=== PATIENT | male | born 1995 | race Caucasian/White ===

== ENCOUNTER 2017-08-29 18:41 | Emergency (ER) | payer OTHER ==
[~2017-08-29] VITALS: Ht 175.3 cm; Wt 108.9 kg
[~2017-08-29 18:41] MED LIST: CRUTCH2 USE; DIAZ1KIT4 PR; HYDACE5 PO; OXCA150; PHENO100; PHENO30; PHENO60; PHENOBARBITAL
[2017-08-29] MEDS ORDERED: OXCA300 (19:12)
[2017-08-29 20:19] LABS: BASOPHILS ABSOLUTE AUTO 0.02 K/mm3 (0.00-0.23); BASOPHILS PERCENT AUTO 0 % (0-2); EOSINOPHILS ABSOLUTE AUTO 0.05 K/mm3 (0.00-0.68); EOSINOPHILS PERCENT AUTO 1 % (0-6); Hematocrit 44.8 % (37.0-53.0); Hemoglobin 15.2 g/dL (13.5-17.5); IMMATURE GRAN ABSOLUTE AUTO 0.01 K/mm3 (0.00-0.10); IMMATURE GRAN PERCENT AUTO 0 % (0-1); LYMPHOCYTES ABSOLUTE AUTO 2.07 K/mm3 (0.84-5.20); LYMPHOCYTES PERCENT AUTO 43 % (21-46); MONOCYTES ABSOLUTE AUTO 0.27 K/mm3 (0.16-1.47); MONOCYTES PERCENT AUTO 6 % (4-13); Mean Corpuscular HGB Conc 33.9 g/dL (31.5-36.5); Mean Corpuscular Volume 94 fL (80-100); Mean Platelet Volume 9.7 fL (9.1-12.4); NEUTROPHILS ABSOLUTE AUTO 2.37 K/mm3 (1.96-9.15); NEUTROPHILS PERCENT AUTO 50 % (41-73); Platelet Count 248 K/mm3 (150-400); RDW Coefficient Variation 11.8 % (11.7-14.2); RDW Standard Deviation 40.9 fL (35.1-46.3); Red Blood Cell Count 4.75 M/mm3 (4.30-5.90); White Blood Cell Count 4.79 K/mm3 (4.00-11.30)
[2017-08-29 20:40] LABS: Alanine Aminotransfer (ALT/SGP 43 U/L (12-78); Albumin, Blood 4.5 g/dL (3.4-5.0); Alk Phos 151 U/L (50-136); Anion Gap 8 mmol/L (6-16); Aspartate Aminotrans (AST/SGOT 50 U/L (12-37); Bilirubin, Total 0.2 mg/dL (0.1-1.0); Blood Urea Nitrogen 9 mg/dL (8-24); Bun/Creatinine Ratio 11.4 (12.0-20.0); CO2, Blood 28 mmol/L (21-32); Calcium, Blood 8.2 mg/dL (8.5-10.1); Chloride, Blood 107 mmol/L (98-108); Creatinine, Blood 0.79 mg/dL (0.60-1.20); Globulin, Blood 4.3 g/dL (2.2-4.0); Glomerular Filtration Rate >60 (60-); Glucose, Blood 82 mg/dL (70-99); Magnesium, Blood 2.3 mg/dL (1.6-2.4); Potassium, Blood 4.1 mmol/L (3.5-5.5); Sodium, Blood 143 mmol/L (136-145); Total Protein, Blood 8.8 g/dL (6.4-8.2)
== END 2017-08-29 20:59 | disposition home or self-care (01) ==
LOC: ER 18:41
PROVIDERS: Emergency Medicine
DX: G40.909 Epilepsy, unspecified, not intractable, without status epilepticus (principal); Z79.899 Other long term (current) drug therapy
CPT/HCPCS: 80053; 80184; 83605; 83735; 85025; 99284; J7030

== ENCOUNTER 2018-06-28 10:59 | Emergency (ER) | payer OTHER ==
[~2018-06-28] VITALS: Ht 175.3 cm; Wt 113.4 kg
[~2018-06-28 10:59] MED LIST changes: +OXCA300; +OXCA300 PO; +PHENO100 PO
[2018-06-28] MEDS ORDERED: METCAR500 PO (12:14)
[2018-06-28] MEDS ORDERED: NAPR550 PO (12:14)
== END 2018-06-28 12:19 | disposition home or self-care (01) ==
LOC: ER 10:59
DX: S20.212A Contusion of left front wall of thorax, initial encounter (principal); W22.8XXA Striking against or struck by other objects, initial encounter; Z79.899 Other long term (current) drug therapy; G40.909 Epilepsy, unspecified, not intractable, without status epilepticus; F17.220 Nicotine dependence, chewing tobacco, uncomplicated
CPT/HCPCS: 71101; 99284-25

== ENCOUNTER 2018-09-07 19:58 | Emergency (ER) | payer OTHER ==
[~2018-09-07] VITALS: Ht 175.3 cm; Wt 113.4 kg
[~2018-09-07 19:58] MED LIST changes: +METCAR500 PO; +NAPR550 PO; -PHENO100 PO
[2018-09-07 20:16] LABS: BASOPHILS ABSOLUTE AUTO 0.03 K/mm3 (0.00-0.23); BASOPHILS PERCENT AUTO 0 % (0-2); EOSINOPHILS ABSOLUTE AUTO 0.02 K/mm3 (0.00-0.68); EOSINOPHILS PERCENT AUTO 0 % (0-6); Hematocrit 39.5 % (37.0-53.0); Hemoglobin 13.6 g/dL (13.5-17.5); IMMATURE GRAN ABSOLUTE AUTO 0.05 K/mm3 (0.00-0.10); IMMATURE GRAN PERCENT AUTO 1 % (0-1); LYMPHOCYTES ABSOLUTE AUTO 1.39 K/mm3 (0.84-5.20); LYMPHOCYTES PERCENT AUTO 21 % (21-46); MONOCYTES ABSOLUTE AUTO 0.65 K/mm3 (0.16-1.47); MONOCYTES PERCENT AUTO 10 % (4-13); Mean Corpuscular HGB Conc 34.4 g/dL (31.5-36.5); Mean Corpuscular Volume 96 fL (80-100); Mean Platelet Volume 10.2 fL (9.1-12.4); NEUTROPHILS ABSOLUTE AUTO 4.62 K/mm3 (1.96-9.15); NEUTROPHILS PERCENT AUTO 68 % (41-73); Platelet Count 257 K/mm3 (150-400); RDW Coefficient Variation 11.9 % (11.7-14.2); RDW Standard Deviation 41.7 fL (35.1-46.3); Red Blood Cell Count 4.12 M/mm3 (4.30-5.90); White Blood Cell Count 6.76 K/mm3 (4.00-11.30)
[2018-09-07 20:41] LABS: Alanine Aminotransfer (ALT/SGP 125 U/L (12-78); Albumin, Blood 4.3 g/dL (3.4-5.0); Albumin/Globulin Ratio 1.1 (0.8-1.8); Alk Phos 152 U/L (50-136); Anion Gap 12 mmol/L (6-16); Aspartate Aminotrans (AST/SGOT 126 U/L (12-37); Bilirubin, Total 0.2 mg/dL (0.1-1.0); Blood Urea Nitrogen 11 mg/dL (8-24); Bun/Creatinine Ratio 13.9 (12.0-20.0); CO2, Blood 22 mmol/L (21-32); Calcium, Blood 8.9 mg/dL (8.5-10.1); Chloride, Blood 103 mmol/L (98-108); Creatinine, Blood 0.79 mg/dL (0.60-1.20); Globulin, Blood 3.9 g/dL (2.2-4.0); Glomerular Filtration Rate >60 (60-); Glucose, Blood 108 mg/dL (70-99); Potassium, Blood 3.7 mmol/L (3.5-5.5); Sodium, Blood 137 mmol/L (136-145); Total Protein, Blood 8.2 g/dL (6.4-8.2)
[2018-09-07] MEDS ORDERED: (None)64.8 MG PO (20:57)
[2018-09-07] MEDS ORDERED: Trileptal300 MG PO (20:57)
[2018-09-07] MEDS ORDERED: AMLO10 PO (20:58)
== END 2018-09-07 22:50 | disposition left against medical advice (07) ==
LOC: ER 19:58
PROVIDERS: Emergency Medicine
DX: R56.9 Unspecified convulsions (principal); Z79.899 Other long term (current) drug therapy
CPT/HCPCS: 36415; 70450; 80053; 80184; 83735; 85025; 96361; 96374; 99284-25; J1953; J7030

== ENCOUNTER 2018-11-15 21:06 | Observation (INO) | payer OTHER ==
[~2018-11-15] VITALS: Ht 175.3 cm; Wt 111.2 kg
[~2018-11-15 21:06] MED LIST changes: +(None)64.8 MG PO; +AMLO10 PO; +Trileptal300 MG PO
[2018-11-15] MEDS ORDERED: LISI5 (21:13)
[2018-11-15 21:42] LABS: BASOPHILS ABSOLUTE AUTO 0.03 K/mm3 (0.00-0.23); BASOPHILS PERCENT AUTO 0 % (0-2); EOSINOPHILS PERCENT AUTO 0 % (0-6); Hematocrit 41.4 % (37.0-53.0); Hemoglobin 14.2 g/dL (13.5-17.5); IMMATURE GRAN ABSOLUTE AUTO 0.02 K/mm3 (0.00-0.10); IMMATURE GRAN PERCENT AUTO 0 % (0-1); LYMPHOCYTES ABSOLUTE AUTO 1.89 K/mm3 (0.84-5.20); LYMPHOCYTES PERCENT AUTO 20 % (21-46); MONOCYTES ABSOLUTE AUTO 0.82 K/mm3 (0.16-1.47); MONOCYTES PERCENT AUTO 9 % (4-13); Mean Corpuscular HGB 32.3 pg (26.0-34.0); Mean Corpuscular HGB Conc 34.3 g/dL (31.5-36.5); Mean Corpuscular Volume 94 fL (80-100); Mean Platelet Volume 10.1 fL (9.1-12.4); NEUTROPHILS ABSOLUTE AUTO 6.51 K/mm3 (1.96-9.15); NEUTROPHILS PERCENT AUTO 70 % (41-73); Platelet Count 300 K/mm3 (150-400); RDW Coefficient Variation 11.4 % (11.7-14.2); RDW Standard Deviation 39.4 fL (35.1-46.3); Red Blood Cell Count 4.39 M/mm3 (4.30-5.90); White Blood Cell Count 9.27 K/mm3 (4.00-11.30)
[2018-11-15 21:58] LABS: Alanine Aminotransfer (ALT/SGP 80 U/L (12-78); Albumin, Blood 4.4 g/dL (3.4-5.0); Albumin/Globulin Ratio 1.1 (0.8-1.8); Alk Phos 149 U/L (50-136); Anion Gap 14 mmol/L (6-16); Aspartate Aminotrans (AST/SGOT 62 U/L (12-37); Bilirubin, Total 0.3 mg/dL (0.1-1.0); Blood Urea Nitrogen 17 mg/dL (8-24); Bun/Creatinine Ratio 17.3 (12.0-20.0); CO2, Blood 22 mmol/L (21-32); Calcium, Blood 9.1 mg/dL (8.5-10.1); Chloride, Blood 103 mmol/L (98-108); Creatinine, Blood 0.98 mg/dL (0.60-1.20); Globulin, Blood 3.9 g/dL (2.2-4.0); Glomerular Filtration Rate >60 (60-); Glucose, Blood 95 mg/dL (70-99); Potassium, Blood 3.8 mmol/L (3.5-5.5); Sodium, Blood 139 mmol/L (136-145); Total Protein, Blood 8.3 g/dL (6.4-8.2)
--- NOTE | 2018-11-16 01:10 | NUR ---
PATIENT ARRIVED TO ICU 9 VIA GURNEY, PATIENT AWAKE A&O AND ANSWERING QUESTIONS APPROPRIATELY. VERBALIZED THAT HE WOULD CALL FOR ASSISTANCE WHEN GETTING UP. PATIENT VERBALIZED THAT HE CAN'T ALWAYS CALL OUT FOR ASSISTANCE WHEN A SEIZURE IS COMING ON, BUT HE NORMALLY CAN GET HIMSELF TO A SAFE PLACE WHEN AT HOME. PATIENT AGREE TO CALL IF HE FEELS A SEIZURE COMING ON. PATIENT REQUESTING SOMETHING TO DRINK, DOCTOR HECTOR CALLED AND ORDER FOR REGULAR DIET OBTAINED.
[2018-11-16] MEDS ORDERED: NAPR500 PO (01:43)
--- NOTE | 2018-11-16 04:06 | NUR ---
PATIENT SLEEPING WHEN UNDISTURBED, AWAKENS TO SLIGHT STIMULI. PLAN TO FINISH ADMIT HISTORY WHEN PATIENT MORE AWAKE.
[2018-11-16 05:59] LABS: Ethanol (Alcohol), Blood, Med <3 mg/dL
[2018-11-16 06:30] LABS: Source, Urine Catheter
--- NOTE | 2018-11-16 06:46 | NUR ---
SUMMARY PATIENT SLEEPING AWAKENS TO SLIGHT STIMULI MOST OF THE NIGHT. PATIENT WAKE THIS MORNING FEELING IF HIS SEIZURE IS TRYING TO RETURN. DOCTOR HECTOR CALLED AND ORDER RECEIVED FOR HIS HOME MEDS AND TO GIVE AM DOSE NOW. URINE SAMPLE SENT TO LAB PER ORDER.
[2018-11-16 06:49] LABS: Appearance, Urine Clear (Clear); Bilirubin, Urine Neg (Neg); Blood, Urine Neg (Neg); Color, Urine Yellow (P-Yellow); Glucose Qualitative, Urine 2+ (Neg); Ketones, Urine 1+ (Neg); Leukocyte Esterase, Urine Neg (Neg); Nitrite, Urine Neg (Neg); Protein, Urine 2+ (Neg); Specific Gravity, Urine 1.025 (1.003-1.022); Urobilinogen, Urine NORM (Normal)
[2018-11-16 06:57] LABS: White Blood Cells, Urine 0-2 /hpf (0-5)
[2018-11-16 06:58] LABS: Amorphous Light (0-Heavy); Bacteria Rare /hpf; Red Blood Cells, Urine 0-2 /hpf (0-2); Squamous Epithelial Cells Not Seen /hpf (Few)
[2018-11-16 06:59] LABS: Uric Acid Crystals Few /hpf
[2018-11-16 07:08] LABS: U Amphetamine Screen Not Detected; U Barbituate Screen DETECTED; U Benzodiazapine Screen DETECTED; U Buprenorphine Screen Not Detected; U Cannabinoids Screen Not Detected; U Cocaine Screen Not Detected; U Methadone Screen Not Detected; U Methamphetamine Screen Not Detected; U Opiates Screen Not Detected; U Oxycodone Screen Not Detected; U Phencyclidine Screen Not Detected; U Propoxyphene Screen Not Detected
[2018-11-16 09:53] LABS: Hematocrit 35.7 % (37.0-53.0); Hemoglobin 12.1 g/dL (13.5-17.5); Mean Corpuscular HGB 31.7 pg (26.0-34.0); Mean Corpuscular HGB Conc 33.9 g/dL (31.5-36.5); Mean Corpuscular Volume 94 fL (80-100); Mean Platelet Volume 9.7 fL (9.1-12.4); Platelet Count 221 K/mm3 (150-400); RDW Coefficient Variation 11.7 % (11.7-14.2); RDW Standard Deviation 39.8 fL (35.1-46.3); Red Blood Cell Count 3.82 M/mm3 (4.30-5.90); White Blood Cell Count 6.94 K/mm3 (4.00-11.30)
--- NOTE | 2018-11-16 10:06 | NUR ---
ASSUMPTION OF CARE ASSUMED CARE @ 0700, PT ALERT AND ORIENTED, SITTING UP IN BED. PT ON 2L 02 PER NC, O2 SATURATIONS 100%, REMOVED SUPPLEMENTAL OXYGEN @ 0800. PT DECLINED DILANTIN, STS HAS NOT WORKED IN THE PAST AND HESITANT TO CHANGE HOME REGIMENT. PT CALM AND AGREEABLE.
[2018-11-16 10:33] LABS: Alanine Aminotransfer (ALT/SGP 65 U/L (12-78); Albumin, Blood 3.6 g/dL (3.4-5.0); Albumin/Globulin Ratio 1.1 (0.8-1.8); Alk Phos 124 U/L (50-136); Anion Gap 4 mmol/L (6-16); Aspartate Aminotrans (AST/SGOT 44 U/L (12-37); Bilirubin, Total 0.4 mg/dL (0.1-1.0); Blood Urea Nitrogen 12 mg/dL (8-24); Bun/Creatinine Ratio 15.6 (12.0-20.0); CO2, Blood 26 mmol/L (21-32); Calcium, Blood 8.2 mg/dL (8.5-10.1); Chloride, Blood 109 mmol/L (98-108); Creatinine, Blood 0.77 mg/dL (0.60-1.20); Globulin, Blood 3.2 g/dL (2.2-4.0); Glomerular Filtration Rate >60 (60-); Glucose, Blood 100 mg/dL (70-99); Potassium, Blood 3.7 mmol/L (3.5-5.5); Sodium, Blood 139 mmol/L (136-145); Total Protein, Blood 6.8 g/dL (6.4-8.2)
--- NOTE | 2018-11-16 12:11 | NUR ---
CALL TO DR LEE REGARDING AMLODIPINE, PT STS HE TAKES 10MG AT HOME AND ONLY RECEIVED 5MG THIS MORNING. PT ALSO ANXIOUS TO GO HOME, STS HE FEELS WELL AND HAS NO CONCERNS ABOUT GOING HOME. DR GUILLORY ORDERED CHANGE IN MEDICATION FOR 10MG AMLODIPINE DAILY.
--- NOTE | 2018-11-16 14:00 | NUR ---
DR LEE IN TO SEE PT. DR LEE RECOMMENDS PT STAY IN THE HOSPITAL TO HAVE MRI, EEG, AND NEURO CONSULT DONE. PT DECLINES, WISHES TO GO HOME AND STS CAN FOLLOW UP WITH PCP FOR ANY NECESSARY TESTS.
--- NOTE | 2018-11-16 14:42 | NUR ---
PT LEFT UNIT, AMBULATING ON OWN, STS HAS FRIEND PICKING HIM UP.
== END 2018-11-16 14:42 | disposition left against medical advice (07) ==
LOC: ER 21:06 → ICUW 21:07
PROVIDERS: Emergency Medicine; ADMIT Internal Medicine
DX: G40.901 Epilepsy, unspecified, not intractable, with status epilepticus (principal); I10 Essential (primary) hypertension; Z79.899 Other long term (current) drug therapy; Z88.8 Allergy status to other drugs, medicaments and biological substances
CPT/HCPCS: 36415; 70450; 71046; 80053; 80183; 80184; 81001; 82140; 83735; 85025; 85027; 93005; 93010; 96365; 96375; 96376; 99285-25; G0378; G0480; J1165; J1953; J2060; J7030; J7050

== ENCOUNTER 2018-11-26 22:09 | Emergency (ER) | payer OTHER ==
[~2018-11-26] VITALS: Ht 175.3 cm; Wt 113.4 kg
[~2018-11-26 22:09] MED LIST changes: +LISI5; +NAPR500 PO
[2018-11-26 22:23] LABS: BASOPHILS ABSOLUTE AUTO 0.02 K/mm3 (0.00-0.23); BASOPHILS PERCENT AUTO 0 % (0-2); EOSINOPHILS ABSOLUTE AUTO 0.06 K/mm3 (0.00-0.68); EOSINOPHILS PERCENT AUTO 1 % (0-6); Hematocrit 41.1 % (37.0-53.0); Hemoglobin 14.1 g/dL (13.5-17.5); IMMATURE GRAN ABSOLUTE AUTO 0.17 K/mm3 (0.00-0.10); IMMATURE GRAN PERCENT AUTO 2 % (0-1); LYMPHOCYTES ABSOLUTE AUTO 2.81 K/mm3 (0.84-5.20); LYMPHOCYTES PERCENT AUTO 32 % (21-46); MONOCYTES ABSOLUTE AUTO 0.57 K/mm3 (0.16-1.47); MONOCYTES PERCENT AUTO 7 % (4-13); Mean Corpuscular HGB 32.5 pg (26.0-34.0); Mean Corpuscular HGB Conc 34.3 g/dL (31.5-36.5); Mean Corpuscular Volume 95 fL (80-100); Mean Platelet Volume 10.1 fL (9.1-12.4); NEUTROPHILS ABSOLUTE AUTO 5.18 K/mm3 (1.96-9.15); NEUTROPHILS PERCENT AUTO 59 % (41-73); Platelet Count 262 K/mm3 (150-400); RDW Coefficient Variation 11.5 % (11.7-14.2); RDW Standard Deviation 40.3 fL (35.1-46.3); Red Blood Cell Count 4.34 M/mm3 (4.30-5.90); White Blood Cell Count 8.81 K/mm3 (4.00-11.30)
[2018-11-26 22:46] LABS: Alanine Aminotransfer (ALT/SGP 67 U/L (12-78); Albumin, Blood 4.4 g/dL (3.4-5.0); Albumin/Globulin Ratio 1.1 (0.8-1.8); Alk Phos 156 U/L (50-136); Anion Gap 8 mmol/L (6-16); Aspartate Aminotrans (AST/SGOT 57 U/L (12-37); Bilirubin, Total 0.3 mg/dL (0.1-1.0); Blood Urea Nitrogen 16 mg/dL (8-24); Bun/Creatinine Ratio 16.5 (12.0-20.0); CO2, Blood 25 mmol/L (21-32); Calcium, Blood 8.8 mg/dL (8.5-10.1); Chloride, Blood 105 mmol/L (98-108); Creatinine, Blood 0.97 mg/dL (0.60-1.20); Ethanol (Alcohol), Blood, Med <3 mg/dL; Globulin, Blood 3.9 g/dL (2.2-4.0); Glomerular Filtration Rate >60 (60-); Glucose, Blood 102 mg/dL (70-99); Potassium, Blood 3.2 mmol/L (3.5-5.5); Sodium, Blood 138 mmol/L (136-145); Total Protein, Blood 8.3 g/dL (6.4-8.2)
== END 2018-11-27 02:06 | disposition short-term general hospital (02) ==
LOC: ER 22:09
PROVIDERS: Emergency Medicine
DX: S82.252A Displaced comminuted fracture of shaft of left tibia, initial encounter for closed fracture (principal); S82.452A Displaced comminuted fracture of shaft of left fibula, initial encounter for closed fracture; S12.200A Unspecified displaced fracture of third cervical vertebra, initial encounter for closed fracture; S12.600A Unspecified displaced fracture of seventh cervical vertebra, initial encounter for closed fracture; S01.412A Laceration without foreign body of left cheek and temporomandibular area, initial encounter; S01.21XA Laceration without foreign body of nose, initial encounter; S01.112A Laceration without foreign body of left eyelid and periocular area, initial encounter; F17.220 Nicotine dependence, chewing tobacco, uncomplicated; Z88.8 Allergy status to other drugs, medicaments and biological substances; Z79.899 Other long term (current) drug therapy; V23.4XXA Motorcycle driver injured in collision with car, pick-up truck or van in traffic accident, initial encounter
CPT/HCPCS: 12013; 29505; 70450; 71045; 71260; 72125; 72170; 73590; 74177; 80053; 83690; 85025; 86850; 86900; 86901; 90471; 90714; 96374-59; 96375-59; 96376-59; 99285-25; G0480; J2270; J2405; Q9967

== ENCOUNTER 2019-04-08 03:39 | Emergency (ER) | payer OTHER ==
[~2019-04-08] VITALS: Ht 175.3 cm; Wt 104.3 kg
[2019-04-08] MEDS ORDERED: Valtrex1000 MG PO (04:36)
[2019-04-08] MEDS ORDERED: NYST237S MT (04:36)
== END 2019-04-08 05:14 | disposition home or self-care (01) ==
LOC: ER 03:39
DX: K12.1 Other forms of stomatitis (principal); G40.909 Epilepsy, unspecified, not intractable, without status epilepticus; Z79.899 Other long term (current) drug therapy
CPT/HCPCS: 99283

== ENCOUNTER 2019-06-04 18:09 | Emergency (ER) | payer OTHER ==
[~2019-06-04] VITALS: Ht 175.3 cm; Wt 68.0 kg
[~2019-06-04 18:09] MED LIST changes: +NYST237S MT; +Valtrex1000 MG PO
[2019-06-04 19:20] LABS: BASOPHILS ABSOLUTE AUTO 0.03 K/mm3 (0.00-0.23); BASOPHILS PERCENT AUTO 0 % (0-2); EOSINOPHILS PERCENT AUTO 0 % (0-6); Hematocrit 40.1 % (37.0-53.0); Hemoglobin 13.5 g/dL (13.5-17.5); IMMATURE GRAN ABSOLUTE AUTO 0.04 K/mm3 (0.00-0.10); IMMATURE GRAN PERCENT AUTO 0 % (0-1); LYMPHOCYTES ABSOLUTE AUTO 0.91 K/mm3 (0.84-5.20); LYMPHOCYTES PERCENT AUTO 6 % (21-46); MONOCYTES ABSOLUTE AUTO 0.87 K/mm3 (0.16-1.47); MONOCYTES PERCENT AUTO 6 % (4-13); Mean Corpuscular HGB 32.4 pg (26.0-34.0); Mean Corpuscular HGB Conc 33.7 g/dL (31.5-36.5); Mean Corpuscular Volume 96 fL (80-100); NEUTROPHILS ABSOLUTE AUTO 12.26 K/mm3 (1.96-9.15); NEUTROPHILS PERCENT AUTO 87 % (41-73); Platelet Count 241 K/mm3 (150-400); RDW Coefficient Variation 11.9 % (11.7-14.2); Red Blood Cell Count 4.17 M/mm3 (4.30-5.90); White Blood Cell Count 14.11 K/mm3 (4.00-11.30)
[2019-06-04 19:44] LABS: Alanine Aminotransfer (ALT/SGP 47 U/L (12-78); Alk Phos 238 U/L (50-136); Anion Gap 9 mmol/L (6-16); Aspartate Aminotrans (AST/SGOT 46 U/L (12-37); Bilirubin, Total 0.4 mg/dL (0.1-1.0); Blood Urea Nitrogen 9 mg/dL (8-24); Bun/Creatinine Ratio 10.5 (12.0-20.0); CO2, Blood 23 mmol/L (21-32); Calcium, Blood 8.8 mg/dL (8.5-10.1); Chloride, Blood 105 mmol/L (98-108); Creatinine, Blood 0.86 mg/dL (0.60-1.20); Globulin, Blood 4.2 g/dL (2.2-4.0); Glomerular Filtration Rate >60 (60-); Glucose, Blood 90 mg/dL (70-99); Sodium, Blood 137 mmol/L (136-145); Total Protein, Blood 8.2 g/dL (6.4-8.2)
== END 2019-06-04 21:46 | disposition home or self-care (01) ==
LOC: ER 18:09
PROVIDERS: Emergency Medicine
DX: G40.909 Epilepsy, unspecified, not intractable, without status epilepticus (principal); I10 Essential (primary) hypertension
CPT/HCPCS: 36415; 71046; 80053; 80184; 85025; 96374; 99284-25; J2060

== ENCOUNTER 2019-06-07 00:59 | Emergency (ER) | payer OTHER ==
[~2019-06-07] VITALS: Ht 175.3 cm; Wt 113.4 kg
[2019-06-07] MEDS ORDERED: VALACYCLOVIR1000 M1 PO (01:34)
== END 2019-06-07 01:42 | disposition home or self-care (01) ==
LOC: ER 00:59
DX: B00.2 Herpesviral gingivostomatitis and pharyngotonsillitis (principal); S01.512D Laceration without foreign body of oral cavity, subsequent encounter; G40.909 Epilepsy, unspecified, not intractable, without status epilepticus; Z88.8 Allergy status to other drugs, medicaments and biological substances; Z79.899 Other long term (current) drug therapy; F17.220 Nicotine dependence, chewing tobacco, uncomplicated; Y04.1XXD Assault by human bite, subsequent encounter
CPT/HCPCS: 99282

== ENCOUNTER 2019-08-08 23:34 | Emergency (ER) | payer OTHER ==
[~2019-08-08] VITALS: Ht 175.3 cm; Wt 116.1 kg
[~2019-08-08 23:34] MED LIST changes: +VALACYCLOVIR1000 M1 PO
[2019-08-08] MEDS ORDERED: AMLO10 PO (23:54)
[2019-08-08] MEDS ORDERED: NAPR500 PO (23:54)
[2019-08-09] MEDS ORDERED: FLONASE ALLERG9.9 ML (00:05)
[2019-09-02] MEDS ORDERED: PHENO60 PO (09:48)
[2019-09-02] MEDS ORDERED: Oxcarbazepine300 MG PO (09:48)
[2019-09-02] MEDS ORDERED: ACYC200 PO (10:55)
== END 2019-08-09 00:20 | disposition home or self-care (01) ==
LOC: ER 23:34
DX: J31.0 Chronic rhinitis (principal); Z88.8 Allergy status to other drugs, medicaments and biological substances; Z79.899 Other long term (current) drug therapy; G40.909 Epilepsy, unspecified, not intractable, without status epilepticus; F17.220 Nicotine dependence, chewing tobacco, uncomplicated
CPT/HCPCS: 99282

== ENCOUNTER 2019-11-10 04:21 | Emergency (ER) | payer OTHER ==
[~2019-11-10] VITALS: Ht 175.3 cm; Wt 113.4 kg
[~2019-11-10 04:21] MED LIST changes: +ACYC200 PO; +FLONASE ALLERG9.9 ML; +Oxcarbazepine300 MG PO; +PHENO60 PO
[2019-11-10] MEDS ORDERED: AMLODIPINE-OLM1 EAC4 PO (04:33)
[2019-11-10 04:46] LABS: BASOPHILS ABSOLUTE AUTO 0.02 K/mm3 (0.00-0.23); BASOPHILS PERCENT AUTO 0 % (0-2); EOSINOPHILS ABSOLUTE AUTO 0.02 K/mm3 (0.00-0.68); EOSINOPHILS PERCENT AUTO 0 % (0-6); Hematocrit 40.5 % (37.0-53.0); IMMATURE GRAN ABSOLUTE AUTO 0.03 K/mm3 (0.00-0.10); IMMATURE GRAN PERCENT AUTO 0 % (0-1); LYMPHOCYTES ABSOLUTE AUTO 0.85 K/mm3 (0.84-5.20); LYMPHOCYTES PERCENT AUTO 10 % (21-46); MONOCYTES ABSOLUTE AUTO 0.47 K/mm3 (0.16-1.47); MONOCYTES PERCENT AUTO 5 % (4-13); Mean Corpuscular HGB 31.5 pg (26.0-34.0); Mean Corpuscular HGB Conc 34.6 g/dL (31.5-36.5); Mean Corpuscular Volume 91 fL (80-100); Mean Platelet Volume 9.7 fL (9.1-12.4); NEUTROPHILS ABSOLUTE AUTO 7.58 K/mm3 (1.96-9.15); NEUTROPHILS PERCENT AUTO 85 % (41-73); Platelet Count 243 K/mm3 (150-400); RDW Coefficient Variation 11.4 % (11.7-14.2); RDW Standard Deviation 38.7 fL (35.1-46.3); Red Blood Cell Count 4.44 M/mm3 (4.30-5.90); White Blood Cell Count 8.97 K/mm3 (4.00-11.30)
[2019-11-10 05:16] LABS: Alanine Aminotransfer (ALT/SGP 49 U/L (12-78); Albumin, Blood 4.1 g/dL (3.4-5.0); Alk Phos 198 U/L (50-136); Anion Gap 9 mmol/L (6-16); Aspartate Aminotrans (AST/SGOT 44 U/L (12-37); Bilirubin, Total 0.3 mg/dL (0.1-1.0); Blood Urea Nitrogen 17 mg/dL (8-24); Bun/Creatinine Ratio 20.3 (12.0-20.0); CO2, Blood 25 mmol/L (21-32); Calcium, Blood 9.1 mg/dL (8.5-10.1); Chloride, Blood 105 mmol/L (98-108); Creatinine, Blood 0.84 mg/dL (0.60-1.20); Globulin, Blood 4.2 g/dL (2.2-4.0); Glomerular Filtration Rate >60 (60-); Glucose, Blood 83 mg/dL (70-99); Potassium, Blood 4.2 mmol/L (3.5-5.5); Sodium, Blood 139 mmol/L (136-145); Total Protein, Blood 8.3 g/dL (6.4-8.2)
== END 2019-11-10 06:01 | disposition home or self-care (01) ==
LOC: ER 04:21
PROVIDERS: Emergency Medicine
DX: G40.909 Epilepsy, unspecified, not intractable, without status epilepticus (principal); I10 Essential (primary) hypertension; F17.220 Nicotine dependence, chewing tobacco, uncomplicated; Z88.8 Allergy status to other drugs, medicaments and biological substances; Z79.899 Other long term (current) drug therapy
CPT/HCPCS: 36415; 80053; 80184; 85025; 99284; J7030

== ENCOUNTER 2019-11-22 12:25 | Emergency (ER) | payer OTHER ==
[~2019-11-22] VITALS: Ht 175.3 cm; Wt 120.2 kg
[~2019-11-22 12:25] MED LIST changes: +AMLODIPINE-OLM1 EAC4 PO
== END 2019-11-22 13:43 | disposition home or self-care (01) ==
LOC: ER 12:25
DX: R68.84 Jaw pain (principal); G40.909 Epilepsy, unspecified, not intractable, without status epilepticus; F17.220 Nicotine dependence, chewing tobacco, uncomplicated; Z88.8 Allergy status to other drugs, medicaments and biological substances; Z79.899 Other long term (current) drug therapy
CPT/HCPCS: 70110; 99283-25

== ENCOUNTER 2020-01-20 23:21 | Emergency (ER) | payer MEDICARE, OTHER ==
[~2020-01-20] VITALS: Ht 177.8 cm; Wt 113.4 kg
[2020-01-20] MEDS ORDERED: AMLO10 PO (23:37)
[2020-01-20] MEDS ORDERED: NAPR500EC PO (23:38)
[2020-01-20 23:45] LABS: Calcium, Ionized (POC) 1.19 mmol/L (1.10-1.46); Chloride (POC) 99 mmol/L (98-108); Glucose (ISTAT POC) 76 mg/dL (70-99); Hemoglobin (POC) 13.6 g/dL (13.5-17.5); Potassium (POC) 3.9 mmol/L (3.5-5.5); Sodium (POC) 135 mmol/L (135-148); Total CO2 (POC) 25 mmol/L (21-32)
== END 2020-01-21 00:55 | disposition home or self-care (01) ==
LOC: ER 23:21
PROVIDERS: Emergency Medicine
DX: G40.909 Epilepsy, unspecified, not intractable, without status epilepticus (principal); F17.200 Nicotine dependence, unspecified, uncomplicated; Z79.899 Other long term (current) drug therapy; Z88.8 Allergy status to other drugs, medicaments and biological substances
CPT/HCPCS: 80047; 85014; 99284; J7030

== ENCOUNTER 2020-04-24 16:48 | Emergency (ER) | payer OTHER ==
[~2020-04-24] VITALS: Ht 175.3 cm; Wt 122.5 kg
[~2020-04-24 16:48] MED LIST changes: +NAPR500EC PO
[2020-04-24] MEDS ORDERED: TRAZ150T57 PO (17:02)
== END 2020-04-24 19:17 | disposition home or self-care (01) ==
LOC: ER 16:48
PROVIDERS: Emergency Medicine
DX: G40.909 Epilepsy, unspecified, not intractable, without status epilepticus (principal); I10 Essential (primary) hypertension; F17.220 Nicotine dependence, chewing tobacco, uncomplicated; Z88.8 Allergy status to other drugs, medicaments and biological substances; Z79.899 Other long term (current) drug therapy
CPT/HCPCS: 36415; 80184; 96374; 99284-25; J2060; J7030

== ENCOUNTER 2021-01-03 06:38 | Day surgery (SDC) | payer OTHER ==
[~2021-01-03] VITALS: Ht 175.3 cm; Wt 122.8 kg
[~2021-01-03 06:38] MED LIST changes: +ACYC800 PO; +LISI20 PO; +OXCA150 PO; +TRAZ150T57 PO; +ZONI100 PO
--- NOTE | 2021-01-03 07:25 | NUR ---
Ambulatory in Day Surgery. Patient states colon prep results clear. History, Chart, Medications and Allergies reviewed before start of procedure. Lungs clear T/O to Auscultation. Patient confirms NPO status and agrees with scheduled surgery. Pre-Op teaching done. Pt verbalizes understanding. Patient States Post-Procedure ride home has been arranged.
--- NOTE | 2021-01-03 08:13 | NUR ---
01/03/21 0813 Micheal Nicole History, Chart, Medications and Allergies reviewed before start of procedure.MONITOR INTACT WITH CONTINUOUS PULSE OXIMETRY AND INTERMITTENT BP.3-LEAD EKG REVIEWED WITH PHYSICIAN PRIOR TO START OF PROCEDURE.O2 VIA POM INTACT THROUGHOUT SEDATION/PROCEDURE. See Anesthesia record.
--- NOTE | 2021-01-03 09:37 | NUR ---
Patient up to Ambulate independently. Gait steady. Discharge instructions reviewed with patient. Patient verbalizes understanding. Copy given to patient to take home. Discharged via wheelchair to private car for ride home.
== END 2021-01-03 23:30 | disposition home or self-care (01) ==
LOC: ORSCMMR 06:38 → ORD 08:15 → ORSCMMR 23:30
PROVIDERS: Internal Medicine Gastroenterology
PROC: 0DB98ZX Excision of Duodenum, Via Natural or Artificial Opening Endoscopic, Diagnostic (ICD-10-PCS; principal; 2021-01-03 08:15)
PROC: 0DJD8ZZ Inspection of Lower Intestinal Tract, Via Natural or Artificial Opening Endoscopic (ICD-10-PCS; principal; 2021-01-03 08:15)
PROC: 0DB78ZX Excision of Stomach, Pylorus, Via Natural or Artificial Opening Endoscopic, Diagnostic (ICD-10-PCS; principal; 2021-01-03 08:15)
DX: K62.5 Hemorrhage of anus and rectum (principal); D50.9 Iron deficiency anemia, unspecified; K21.9 Gastro-esophageal reflux disease without esophagitis; B96.81 Helicobacter pylori [H. pylori] as the cause of diseases classified elsewhere; K29.80 Duodenitis without bleeding; I10 Essential (primary) hypertension; G40.909 Epilepsy, unspecified, not intractable, without status epilepticus; E66.01 Morbid (severe) obesity due to excess calories; Z68.41 Body mass index [BMI] 40.0-44.9, adult; Z79.899 Other long term (current) drug therapy
CPT/HCPCS: 88305; 88341; 88342; A9270; J2704; J7120

== ENCOUNTER → 2021-02-15 | Outpatient (CLI) | payer OTHER | END | disposition home or self-care (01) | LOC: LAB SHORT 09:26 | DX: K59.01 Slow transit constipation (principal) | CPT/HCPCS: 87338 ==

== ENCOUNTER 2021-10-12 08:38 | Emergency (ER) | payer OTHER ==
[~2021-10-12] VITALS: Ht 175.3 cm; Wt 111.6 kg
[2021-10-12] MEDS ORDERED: CEPH500 PO (10:09)
[2021-10-12] MEDS ORDERED: Bactrim Ds Tab1 EACH PO (10:09)
== END 2021-10-12 10:51 | disposition home or self-care (01) ==
LOC: ER 08:38
DX: J34.0 Abscess, furuncle and carbuncle of nose (principal); F17.220 Nicotine dependence, chewing tobacco, uncomplicated; Z79.899 Other long term (current) drug therapy; Z88.8 Allergy status to other drugs, medicaments and biological substances
CPT/HCPCS: 99283

== ENCOUNTER 2021-11-24 10:17 | Emergency (ER) | payer OTHER ==
[~2021-11-24] VITALS: Ht 175.3 cm; Wt 113.4 kg
[~2021-11-24 10:17] MED LIST changes: +Bactrim Ds Tab1 EACH PO; +CEPH500 PO
[2021-11-24] MEDS ORDERED: ZONI100 PO (10:32)
[2021-11-24] MEDS ORDERED: Oxcarbazepine300 MG PO (10:33)
[2021-11-24] MEDS ORDERED: PENVK500 PO (10:38)
== END 2021-11-24 10:58 | disposition home or self-care (01) ==
LOC: ER 10:17
DX: K14.8 Other diseases of tongue (principal); G40.909 Epilepsy, unspecified, not intractable, without status epilepticus; I10 Essential (primary) hypertension; F17.220 Nicotine dependence, chewing tobacco, uncomplicated; Z88.8 Allergy status to other drugs, medicaments and biological substances; Z79.899 Other long term (current) drug therapy
CPT/HCPCS: 99282; A9270

== ENCOUNTER 2022-01-11 05:46 | Emergency (ER) | payer OTHER ==
[~2022-01-11] VITALS: Ht 175.3 cm; Wt 113.4 kg
[~2022-01-11 05:46] MED LIST changes: +PENVK500 PO
[2022-01-11] MEDS ORDERED: DOXY100 PO (06:39)
[2022-01-11] MEDS ORDERED: TOPICAINE113 GM TOP (06:39)
[2022-01-11] MEDS ORDERED: BETASEPT118 M1 TOP (06:39)
== END 2022-01-11 06:53 | disposition home or self-care (01) ==
LOC: ER 05:46
DX: L73.2 Hidradenitis suppurativa (principal); I10 Essential (primary) hypertension; F17.220 Nicotine dependence, chewing tobacco, uncomplicated; Z88.8 Allergy status to other drugs, medicaments and biological substances; Z79.899 Other long term (current) drug therapy
CPT/HCPCS: A9270; J1885

== ENCOUNTER 2022-11-23 17:17 | Inpatient (IN) | payer OTHER ==
[~2022-11-23] VITALS: Ht 175.3 cm; Wt 116.5 kg
[~2022-11-23 17:17] MED LIST changes: +BETASEPT118 M1 TOP; +DOXY100 PO; +TOPICAINE113 GM TOP
[2022-11-23 19:48] LABS: Alanine Aminotransfer (ALT/SGP 83 U/L (12-78); Albumin, Blood 4.7 g/dL (3.4-5.0); Alk Phos 212 U/L (50-136); Anion Gap 21 mmol/L (6-16); Aspartate Aminotrans (AST/SGOT 72 U/L (12-37); Bilirubin, Total 0.3 mg/dL (0.1-1.0); Blood Urea Nitrogen 10 mg/dL (8-24); Bun/Creatinine Ratio 10.7 (12.0-20.0); CO2, Blood 10 mmol/L (21-32); Chloride, Blood 106 mmol/L (98-108); Creatinine, Blood 0.94 mg/dL (0.60-1.20); Globulin, Blood 4.6 g/dL (2.2-4.0); Glomerular Filtration Rate 113 (60-); Glucose, Blood 112 mg/dL (70-99); Potassium, Blood 4.9 mmol/L (3.5-5.5); Sodium, Blood 137 mmol/L (136-145); Total Protein, Blood 9.3 g/dL (6.4-8.2)
[2022-11-23 23:14] LABS: BASOPHILS ABSOLUTE AUTO 0.03 K/mm3 (0.00-0.23); BASOPHILS PERCENT AUTO 0 % (0-2); EOSINOPHILS PERCENT AUTO 0 % (0-6); Hematocrit 36.3 % (37.0-53.0); Hemoglobin 13.3 g/dL (13.5-17.5); IMMATURE GRAN ABSOLUTE AUTO 0.09 K/mm3 (0.00-0.10); IMMATURE GRAN PERCENT AUTO 1 % (0-1); LYMPHOCYTES ABSOLUTE AUTO 1.33 K/mm3 (0.84-5.20); LYMPHOCYTES PERCENT AUTO 8 % (21-46); MONOCYTES ABSOLUTE AUTO 1.32 K/mm3 (0.16-1.47); MONOCYTES PERCENT AUTO 8 % (4-13); Mean Corpuscular HGB 31.7 pg (26.0-34.0); Mean Corpuscular HGB Conc 36.6 g/dL (31.5-36.5); Mean Corpuscular Volume 86 fL (80-100); Mean Platelet Volume 8.8 fL (9.1-12.4); NEUTROPHILS ABSOLUTE AUTO 14.14 K/mm3 (1.96-9.15); NEUTROPHILS PERCENT AUTO 84 % (41-73); Platelet Count 246 K/mm3 (150-400); RDW Coefficient Variation 11.9 % (11.7-14.2); RDW Standard Deviation 37.4 fL (35.1-46.3); White Blood Cell Count 16.91 K/mm3 (4.00-11.30)
[2022-11-23 23:30] VITALS: BP 146/90
[2022-11-24 01:06] LABS: Source, Urine Clean Catch
[2022-11-24 01:12] LABS: Bilirubin, Urine Neg (Neg); Blood, Urine 2+ (Neg); Glucose Qualitative, Urine Neg (Neg); Ketones, Urine 1+ (Neg); Leukocyte Esterase, Urine Neg (Neg); Nitrite, Urine Neg (Neg); Protein, Urine 2+ (Neg); Specific Gravity, Urine 1.025 (1.003-1.022); Urobilinogen, Urine NORM (Normal)
--- NOTE | 2022-11-24 01:19 | NUR ---
PT ADMITTED TO ROOM PCU 5 FROM ED. ARRIVING AT 2323. PT HAS HIS MOTHER WITH HIM TO ROOM. PT ALERT AND ORIENTED. PLEASANT AND COOPERATIVE WITH CARE AND ASSESSMENT. GOOD HISTORIAN. DR YOUNG COMES TO ROOM TO ASSESS PT. ORDERS RECEIVED. NO S/S SEIZURE ACTIVITIES. OF NOTE: PT'S FACE FLUSHED. MOTHER HAS GONE HOME FOR THE NIGHT. PT STANDS AT SIDE OF BED TO VOID. URINATES 1000 ML. SAMPLE SENT TO LAB FOR URINE TOX SCREEN. WILL REVIEW CHART AND PLAN OF CARE FOR THIS PT.
[2022-11-24 01:22] LABS: Appearance, Urine Clear (Clear); Color, Urine Yellow (P-Yellow)
[2022-11-24 01:23] LABS: Amorphous Light (0-Heavy); Bacteria Not Seen /hpf; Hyaline Casts 0-2 /lpf (0-2); Mucus Mod (0-Heavy); Spermatozoa Few /hpf; Squamous Epithelial Cells Rare /hpf (Few); White Blood Cells, Urine Not Seen /hpf (0-5)
[2022-11-24 01:32] LABS: U Amphetamine Screen Not Detected; U Barbituate Screen DETECTED; U Benzodiazapine Screen Not Detected; U Buprenorphine Screen Not Detected; U Cannabinoids Screen Not Detected; U Cocaine Screen Not Detected; U Methadone Screen Not Detected; U Methamphetamine Screen Not Detected; U Opiates Screen Not Detected; U Oxycodone Screen Not Detected; U Phencyclidine Screen Not Detected; U Propoxyphene Screen Not Detected
[2022-11-24 02:00] VITALS: BP 140/76
--- NOTE | 2022-11-24 03:27 | NUR ---
PT'S HAIR WASHED PENDING EEG THIS DAY
[2022-11-24 04:15] LABS: BASOPHILS ABSOLUTE AUTO 0.02 K/mm3 (0.00-0.23); BASOPHILS PERCENT AUTO 0 % (0-2); EOSINOPHILS PERCENT AUTO 0 % (0-6); Hematocrit 38.8 % (37.0-53.0); IMMATURE GRAN ABSOLUTE AUTO 0.05 K/mm3 (0.00-0.10); IMMATURE GRAN PERCENT AUTO 0 % (0-1); LYMPHOCYTES ABSOLUTE AUTO 1.83 K/mm3 (0.84-5.20); LYMPHOCYTES PERCENT AUTO 12 % (21-46); MONOCYTES ABSOLUTE AUTO 1.81 K/mm3 (0.16-1.47); MONOCYTES PERCENT AUTO 12 % (4-13); Mean Corpuscular HGB 31.7 pg (26.0-34.0); Mean Corpuscular HGB Conc 36.1 g/dL (31.5-36.5); Mean Corpuscular Volume 88 fL (80-100); Mean Platelet Volume 9.8 fL (9.1-12.4); NEUTROPHILS PERCENT AUTO 76 % (41-73); Platelet Count 271 K/mm3 (150-400); RDW Coefficient Variation 11.9 % (11.7-14.2); RDW Standard Deviation 38.1 fL (35.1-46.3); Red Blood Cell Count 4.42 M/mm3 (4.30-5.90); White Blood Cell Count 15.31 K/mm3 (4.00-11.30)
[2022-11-24 04:36] LABS: Albumin/Globulin Ratio 1.1 (0.8-1.8); Bilirubin, Total 0.5 mg/dL (0.1-1.0); Bun/Creatinine Ratio 11.8 (12.0-20.0); Calcium, Blood 8.6 mg/dL (8.5-10.1); Creatinine, Blood 1.1 mg/dL (0.60-1.20); Globulin, Blood 3.8 g/dL (2.2-4.0); Potassium, Blood 3.5 mmol/L (3.5-5.5); Total Protein, Blood 7.8 g/dL (6.4-8.2)
--- NOTE | 2022-11-24 06:32 | NUR ---
PT HAS NOT HAD ANY SEIZURES SINCE ADMIT TO ROOM PCU 6. HAS BEEN ABLE TO VOID Q.S. TEMP MAX 101.0. 650 MG TYLENOL GIVEN. PT'S TEMP CURRENTLY 100.9. NO COMPLAINTS OF PAIN OR N/V. WILL CONTINUE TO MONITOR PT, AND WILL REPORT OFF TO ONCOMING RN.
[2022-11-24 07:33] VITALS: BP 145/79
[2022-11-24 11:22] VITALS: BP 122/67
[2022-11-24 13:53] VITALS: BP 138/91
[2022-11-24 15:46] VITALS: BP 132/88
--- NOTE | 2022-11-24 16:05 | NUR ---
PM UPDATE THIS RN AT BEDSIDE TO REASSESS PT THIS AFTERNOON. PT APPEARS MORE LETHARGIC, UNSTEADY WITH MOVEMENTS, AND PRESENTS WITH SLURRED SPEECH. REPORTS CONTINUED FEELINGS OF "LIGHTHEADEDNESS." MD ARELLANO AT BEDSIDE. NEW ORDERS RECEIVED. THIS RN THEN NOTIFIED BY COURTESY VAN DRIVER OF ST [facility]ANG[facility] ON PT'S RHYTHM AT 1430. ECG COMPLETED, MD NOTIFIED OF RESULTS. ORDERS RECEIVED FOR STAT TROPONIN AND ECHO. CBG SPOT CHECK COMPLETED TO R/O HYPOGLYCEMIA. INSULATION NOZZLEMAN NOTIFIED. CALL LIGHT WITHIN REACH.
--- NOTE | 2022-11-24 17:26 | NUR ---
END OF SHIFT NOTE: PT ALERT AND ORIENTED AT THIS TIME, HOWEVER PT HAS BEEN EXTREMELY LETHARGIC AT TIMES THIS SHIFT. HE HAS FALLEN ASLEEP MID-CONVERSATION AND FORGETS OWN LIMITATIONS; BED ALARM ON. SLURRED SPEECH NOTED AT TIMES BUT IS NOT CONSISTENT. PUPILS REMAIN EQUAL AND REACTIVE, NO FACIAL DROOP OR UNILATERAL WEAKNESSES NOTED. PT REPORTS STILL FEELING LIGHTHEADED. NO SEIZURE ACTIVITY THIS SHIFT. HR 100-110'S, SINUS TACH. SBP 120-140'S, DENIES CHEST PAIN/PRESSURE. AFEBRILE THIS SHIFT. SPO2 >93% ON RA, DENIES FEELING SOB. LARGE VOID IN URINAL THIS PM, >1000ML OUTPUT. NO BM'S. POWERGLIDE TO ADAIR PLACED TODAY. NS INFUSING PER EMAR. EEG IN PROGRESS AT THIS TIME. CALL LIGHT WITHIN REACH, WILL REPORT TO ONCOMING RN.
--- NOTE | 2022-11-24 19:06 | NUR ---
RENAL ULTRASOUND COMPLETED. BLADDER SHOWING OVER 900ML. PATIENT STOOD WITH 2 RN'S. PATIENT ATTEMPTING TO URINATE WITH 2 RN ASSISTANCE, UNABLE TO VOID. STRAIGHT CATH PREFORMED USING STERILE TECHNIQUE. 975ML OUTPUT. BED ALARM IN PLACE.
[2022-11-24 20:09] VITALS: BP 157/82
[2022-11-25 00:50] VITALS: BP 141/83
--- NOTE | 2022-11-25 02:16 | NUR ---
ASSUMPTION OF CARE/EOS: PATIENT HAS BEEN INCREASINGLY MORE ALERT, PATIENT HAS BEEN ABLE TO VOID WITHOUT THE USE OF URINARY STRAIGHT CATHETER. NO SEIZURE ACTIVITY NOTED. ONLY EVENT ON ASSUMPTION PATIENT DID NOT WANT TO TAKE INCREASED DOSE OF TRILEPTA, DID ENDORSE HE WANTED TO TAKE HIS NORMAL 900. SPOKE WITH PROVIDER, AND OK'D. PATIENT HAS BEEN COOPERATIVE WITH CARE, SLIGHTLY FEBRILE TYLENOL GIVEN. PATIENT STILL INFUSING 100mL/HR NS. NO CONCERNS FROM THIS RN. VSS, SLIGHLTY HYPERTENSIVE ON ASSUMPTION IMPROVED. THROUGH THE SHIFT. PATIENT HEART HAS IMPROVED THROUGH THE NIGHT CURRENTLY IN THE 80'S PRIOR HE WAS IN THE LOW 100'S DENIES CHEST PAIN PRESSURE OR SOB. ON RA SPO2 SPOT CHECKS >96%
[2022-11-25 03:31] VITALS: BP 118/65
[2022-11-25 04:05] LABS: BASOPHILS ABSOLUTE AUTO 0.02 K/mm3 (0.00-0.23); BASOPHILS PERCENT AUTO 0 % (0-2); EOSINOPHILS ABSOLUTE AUTO 0.02 K/mm3 (0.00-0.68); EOSINOPHILS PERCENT AUTO 0 % (0-6); Hematocrit 34.6 % (37.0-53.0); Hemoglobin 12.1 g/dL (13.5-17.5); IMMATURE GRAN ABSOLUTE AUTO 0.01 K/mm3 (0.00-0.10); IMMATURE GRAN PERCENT AUTO 0 % (0-1); LYMPHOCYTES ABSOLUTE AUTO 2.17 K/mm3 (0.84-5.20); LYMPHOCYTES PERCENT AUTO 35 % (21-46); MONOCYTES ABSOLUTE AUTO 0.63 K/mm3 (0.16-1.47); MONOCYTES PERCENT AUTO 10 % (4-13); Mean Corpuscular HGB 31.4 pg (26.0-34.0); Mean Corpuscular Volume 90 fL (80-100); Mean Platelet Volume 9.8 fL (9.1-12.4); NEUTROPHILS ABSOLUTE AUTO 3.29 K/mm3 (1.96-9.15); NEUTROPHILS PERCENT AUTO 54 % (41-73); Platelet Count 224 K/mm3 (150-400); RDW Coefficient Variation 12.2 % (11.7-14.2); RDW Standard Deviation 39.7 fL (35.1-46.3); Red Blood Cell Count 3.85 M/mm3 (4.30-5.90); White Blood Cell Count 6.14 K/mm3 (4.00-11.30)
[2022-11-25 04:26] LABS: Albumin, Blood 3.5 g/dL (3.4-5.0); Anion Gap 4 mmol/L (6-16); Blood Urea Nitrogen 6 mg/dL (8-24); Bun/Creatinine Ratio 5.9 (12.0-20.0); CO2, Blood 28 mmol/L (21-32); Calcium, Blood 8.2 mg/dL (8.5-10.1); Chloride, Blood 110 mmol/L (98-108); Creatinine, Blood 1.02 mg/dL (0.60-1.20); Glomerular Filtration Rate 102 (60-); Glucose, Blood 98 mg/dL (70-99); Magnesium, Blood 2.3 mg/dL (1.6-2.4); Phosphorus, Blood 2.8 mg/dL (2.5-4.9); Potassium, Blood 3.2 mmol/L (3.5-5.5); Sodium, Blood 142 mmol/L (136-145)
[2022-11-25 06:55] VITALS: BP 124/66
--- NOTE | 2022-11-25 08:00 | NUR ---
Received in room report with Nickolas GUERRA. Patient was sleeping when entering room and awoke hime to participate. VS done. He is alert and oriented and is able to communicate his needs. He is on RA and sats >90%. He has 18ga PowerGlide to ADAIR and is infusing NS at 100 ml/hr.Independent in bed and is assist to bathroom r/t some weakness and unsteadyness. he has been awake watching TV and on cell phoone. He denies any current needs.
--- NOTE | 2022-11-25 11:30 | NUR ---
Patient has been awake and independent in bed. I had him up walking with walker and is mostly steadt but still has some difficulty with fine motor r/t turning with walker. He is on RA and sats >90%. He has been tolerating meals, fluids , and PO pills without difficulty. Speech is still slurred and is not baseline. Called Dr Valverde and he has been drinking and she has dc'd fluids.
[2022-11-25 12:19] VITALS: BP 151/96
--- NOTE | 2022-11-25 14:04 | NUR ---
Dr Valverde has been into see patient and family at bedside. Reviewed chart with family to answer patient and families questions. ECHO will be done later. patient recieved PO poitassium 20 meq for 3.2 potassium. Patient speech st6ill slurred and verified by family not baseline. He has been up in chair since Therapy has worked with him. He tolerated out walking again.
[2022-11-25 18:15] VITALS: BP 148/88
--- NOTE | 2022-11-25 18:23 | NUR ---
Patient family has gone hoem He is awake in bed and gets up often to walk with walker and has been advised to go slowly and no fast turns. He is motivated to get stronger but continues to have limitations wit finmotor to LE's. He remains alert and mild slurred speech. He continues on RA and sats >90%. He is independent in bed and getting up. He was bladder scanned after void in bathroom and has 0ml's reading. He is tolerating meals and meds well. Echo done and no report as of yet. DELANEY but slow. PowerGlide to ADAIR flushed and SL'd.
[2022-11-25 19:15] VITALS: BP 156/100
--- NOTE | 2022-11-25 22:27 | NUR ---
AOS: PATIENT WITH MEDCIATIONS CHANGES THAT HE DOES NOT WANT TO DO, WANTS TO STICK TO HIS PREIVOUS REGIEMENT, PLACING AN ADDTIONAL CALL TO RESIDENT TO CONFIRM WITH RESIDENT, MISSING ZONEGRAN 300 PM AND HE SPLITS HIS DOSING OF BLOOD PRESSURE MEDS AMLODIPINE AM AND LISINOPRIL AT NIGHT, IS WILLING TO TRY BETABLOCKER, DUE TO SLIGHT INCREASE IN BLOOD PRESSURE, ADDITIOANLLY DOES NOT WANT TO TAKE 1200 OF TRILEPTA ONLY THE NORMAL 900 GIVEN AT THIS TIME YESTERDAY WITH PATIENT.
--- NOTE | 2022-11-25 23:58 | NUR ---
PATIENT ENDORSING MORNING AND NIGHT ZONISAMIDE, 300MG. HAS NOT RECIEVING REQUESTING DOSE, SPOKE WITH RESIDENT AND CONFIRMING WITH PHARMACY OK TO GIVE. PATIENT ALSO STARTED METOPROLOL TONIGHT.
[2022-11-26 04:03] VITALS: BP 138/93
[2022-11-26 04:24] LABS: BASOPHILS ABSOLUTE AUTO 0.03 K/mm3 (0.00-0.23); BASOPHILS PERCENT AUTO 0 % (0-2); EOSINOPHILS ABSOLUTE AUTO 0.04 K/mm3 (0.00-0.68); EOSINOPHILS PERCENT AUTO 1 % (0-6); Hematocrit 38.4 % (37.0-53.0); Hemoglobin 13.4 g/dL (13.5-17.5); IMMATURE GRAN ABSOLUTE AUTO 0.01 K/mm3 (0.00-0.10); IMMATURE GRAN PERCENT AUTO 0 % (0-1); LYMPHOCYTES ABSOLUTE AUTO 2.27 K/mm3 (0.84-5.20); LYMPHOCYTES PERCENT AUTO 32 % (21-46); MONOCYTES PERCENT AUTO 7 % (4-13); Mean Corpuscular HGB 31.4 pg (26.0-34.0); Mean Corpuscular HGB Conc 34.9 g/dL (31.5-36.5); Mean Corpuscular Volume 90 fL (80-100); Mean Platelet Volume 9.4 fL (9.1-12.4); NEUTROPHILS PERCENT AUTO 60 % (41-73); Platelet Count 244 K/mm3 (150-400); RDW Coefficient Variation 12.2 % (11.7-14.2); RDW Standard Deviation 40.2 fL (35.1-46.3); Red Blood Cell Count 4.27 M/mm3 (4.30-5.90); White Blood Cell Count 7.05 K/mm3 (4.00-11.30)
--- NOTE | 2022-11-26 04:31 | NUR ---
EOS: NO CHANGES FROM ASSUMPTION OF CARE, PLEASE SEE NOTE. INCREASED ORIENTATION STRANGTH, PATIETN WALKING AROUND THE ROOM WELL, STILL VOINING, DENIES CHETS PAIN PRESSURE OR SOB. AM LABS DRAWN, STILL PENDING. VSS. IMPROVED HR WITH METOPROLOL. NO CONCERNS ABOUT DISCHARGE TODAY.
[2022-11-26 04:46] LABS: Albumin, Blood 4.1 g/dL (3.4-5.0); Anion Gap 4 mmol/L (6-16); Blood Urea Nitrogen 7 mg/dL (8-24); Bun/Creatinine Ratio 7.3 (12.0-20.0); CO2, Blood 27 mmol/L (21-32); Calcium, Blood 8.9 mg/dL (8.5-10.1); Chloride, Blood 110 mmol/L (98-108); Creatinine, Blood 0.95 mg/dL (0.60-1.20); Glomerular Filtration Rate 111 (60-); Glucose, Blood 101 mg/dL (70-99); Phosphorus, Blood 2.7 mg/dL (2.5-4.9); Potassium, Blood 3.5 mmol/L (3.5-5.5); Sodium, Blood 141 mmol/L (136-145)
[2022-11-26 08:30] VITALS: BP 153/92
[2022-11-26] MEDS ORDERED: METO25 PO (11:38)
--- NOTE | 2022-11-26 13:41 | NUR ---
RX'S FAXED TO [facility], VERBAL AND WRITTEN DISCHARGE INSTRUCTIONS GIVEN WITH CLEAR UNDERSTANDING.
== END 2022-11-26 12:13 | disposition home or self-care (01) | DRG 101 ==
LOC: ER 17:17 → PCU 17:18
PROVIDERS: Emergency Medicine; Internal Medicine; ADMIT Internal Medicine
DX: G40.909 Epilepsy, unspecified, not intractable, without status epilepticus (principal); E87.20 Acidosis, unspecified; R74.01 Elevation of levels of liver transaminase levels; I10 Essential (primary) hypertension; D72.829 Elevated white blood cell count, unspecified; R00.0 Tachycardia, unspecified; Z88.8 Allergy status to other drugs, medicaments and biological substances; Z79.899 Other long term (current) drug therapy; Z79.811 Long term (current) use of aromatase inhibitors
CPT/HCPCS: 36415; 70450; 76770; 80053; 80069; 80183; 80184; 80203; 81001; 82947; 83735; 83880; 84484; 85025; 93005; 93010; 93306; 95819; 96372; 96374; 96375; 96376; 97110; 97116; 97162; 97165; 97530; 99285-25; A9270; C1751; G0378; J1165; J1650; J2060; J2405; J2560; J7030; J7040; Q2009